=== PATIENT | female | born 1950 | race Caucasian/White ===

== ENCOUNTER 2017-02-26 12:34 | Emergency (ER) | payer MEDICARE, BC ==
[~2017-02-26] VITALS: Ht 172.7 cm; Wt 68.0 kg
[2017-02-26 12:45] VITALS: BP 131/88
== END 2017-02-26 13:41 | disposition home or self-care (01) ==
LOC: ED 13:35
DX: B02.9 Zoster without complications (principal); I10 Essential (primary) hypertension
CPT/HCPCS: 99283